=== PATIENT | male | born 1990 | race Caucasian/White ===

== ENCOUNTER 2019-09-13 19:55 | Emergency (ER) | payer OTHER ==
[~2019-09-13] VITALS: Ht 162.6 cm; Wt 66.0 kg
[2019-09-13] MEDS ORDERED: PREDNISONE 20MG TABLET PO ONE (21:30)
[2019-09-13] MEDS ORDERED: HYDROCODONE/ACETAMINOPHEN 5/325MG TABLET PO ONE (21:30)
[2019-09-13 21:56] VITALS: BP 145/80
== END 2019-09-13 21:56 | disposition home or self-care (01) ==
LOC: ER 19:55
DX: M79.2 Neuralgia and neuritis, unspecified (principal); K13.79 Other lesions of oral mucosa; J45.909 Unspecified asthma, uncomplicated; Z88.0 Allergy status to penicillin
CPT/HCPCS: 99283; J7512